=== PATIENT | female | born 1950 | race Caucasian/White ===

== ENCOUNTER 2024-11-13 15:04 | Inpatient (IN) | payer MEDICARE, SELFPAY ==
[2024-11-13] VITALS (12 sets, daily range): BP systolic 92–139; BP diastolic 52–94; PULSE 83–119; RESP 14–40; TEMP 36.6–36.9; O2SAT 88–99; BMI 26.6; BMI 25.4
--- NOTE | 2024-11-13 15:13 | ECG_ITS ---
APPROVED REPORT Exam: Resting ECG HR:120 bpm ECG Measurements Heart Rate 120 AXES ND 147 P 86 QRSd 78 QRS 82 QT 335 T 21 QTc 406 Conclusion Sinus tachycardia Intermittent PVCs ST depressions in V3 through V6 as well as 2, 3, aVF. No reciprocal elevations Electronically signed by : AUGUSTIN HILLS, 11/13/2024 19:11:29
--- NOTE | 2024-11-13 15:18 | XR_ITS ---
PROCEDURE INFORMATION: Exam: XR Chest Exam date and time: 11/13/2024 3:22 PM Age: 74 years old Clinical indication: Shortness of breath; Additional info: SOA, copd exacerbation, smoker TECHNIQUE: Imaging protocol: Radiologic exam of the chest. Views: 1 view. COMPARISON: No relevant prior studies available. FINDINGS: Lungs: Hyperexpanded lung [place] consistent with COPD . No focal consolidation Pleural spaces: Unremarkable. No pleural effusion. No pneumothorax. Heart/Mediastinum: Unremarkable. No cardiomegaly. Bones/joints: Unremarkable. IMPRESSION: . No focal consolidation
[2024-11-13] MEDS: IPRATROPIUM/ALBUTEROL 3 ML NEB 9 ML IH ×2 (15:21→17:33)
[2024-11-13 15:27] LABS: VBG Base Excess -2.4 mmol/L (-2.4-2.3); VBG HCO3 23.5 mmol/L (23-30); VBG Oxygen Saturation 77.8 % (50-70); VBG PCO2 44.9 mmol/L (35-51); VBG PH 7.34 mmol/L (7.31-7.41); VBG Total CO2 24.8 mmol/L (23-27)
[2024-11-13] MEDS: METHYLPREDNISOLONE SOD SUCC 125MG VIAL 125 MG IV (15:27)
[2024-11-13] MEDS: MAGNESIUM SULFATE IN WATER 2 GM/50 ML PIGGYBACK IV (15:27)
[2024-11-13 15:28] LABS: Lactate Venous 2.2 mmol/L (0.4-2.0)
[2024-11-13 15:34] LABS: Activated Partial Thrombo Time 26.1 seconds (22.8-30.6); Albumin Level 4.5 g/dl (3.5-5.0); Chloride 100 mmol/L (98-107); INR 0.96 (0.9-1.1); Potassium 3.8 mmoL/L (3.5-5.1); Prothrombin Time 10.8 seconds (10.1-12.5); Sodium 132 mmol/L (136-145)
[2024-11-13 15:37] LABS: Alanine Aminotransferase 48 U/L (12-78); Albumin/Globulin Ratio 1.4 (1.1-1.8); Alkaline Phosphatase 157 U/L (38-126); Anion Gap 11.8 mEq/L (5-15); Aspartate Amino Transferase 53 U/L (14-36); Bilirubin,Total 0.9 mg/dl (0.2-1.3); Blood Urea Nitrogen 17 mg/dl (7-17); Calcium 9.6 mg/dl (8.4-10.2); Carbon Dioxide 24 mmol/L (22.0-30.0); Creatinine Clearance Estimated 61 mL/min (50-200); Estimated Glomerular Filt Rate 70 ml/min (>60); GFR (African American) 85 ML/MIN (>60); Globulin 3.3 g/dL (1.3-3.2); Glucose 129 mg/dl (74-100); Total Protein,Serum 7.8 g/dl (6.3-8.2)
--- NOTE | 2024-11-13 15:40 | ED_ITS ---
Discharge Plan Disposition Chief Complaint: Shortness of Breath/Dyspnea Clinical Impressions Clinical Impression: Acute exacerbation of chronic obstructive airways disease, Acute hypoxemic respiratory failure Print Language Print Language: Setswana Discharge ED Provider: Darrius Farley HPI General Chief Complaint: Shortness of Breath/Dyspnea Stated Complaint: SOA Time Seen by Provider: 11/13/24 15:06 Mode of Arrival: Wheelchair Source of Information: Patient Limitations: No Limitations Description of Symptoms (Recalled from ER Triage Doc. by RN): PT IS SHORT OF BREATH. COPD,SMOKER,X1 WEEK History of Present Illness HPI narrative: Please note that above description of symptoms, in this electronic medical record under categorization of recalled from ER triage doctor by RN are reflective of an initial nursing assessment, however, is not reflective of my full history and physical exam that was personally taken and clarified. Consequentially, this preceding description of symptoms, which may include the patient's categorized chief complaint in the EMR, do not reflect my personal clinical impression, and the ultimate description of history of present illness and patient stated complaints should be deferred to this section of the note. Unless stated otherwise or congruent with this section of the note, additional signs, symptoms, or incongruence should be interpreted as inaccurate with my clinical impression. Related Data Allergies Allergy/AdvReac Type Severity Reaction Status Date / Time No Known Allergies Allergy Verified 11/13/24 15:19 [facility] Disclaimer: The information contained in this section may have been updated after the patient was seen, as this information can be updated by other users. Social History Smoking Status: Current every day smoker alcohol intake: never current occupational status: retired Travel in the last 8 weeks: None ROS Obtained: Yes All systems reviewed & no additional complaints except as documented Physical Exam General General appearance: alert and in distress (Moderate respiratory distress) Neck Neck exam: Present trachea midline Chest Chest inspection: Present normal inspection and symmetric chest wall rise Respiratory Respiratory exam: Present respiratory distress, wheezes, accessory muscle use and prolonged expiratory phase; Absent stridor Cardiovascular Cardiovascular exam: Present regular rate, normal rhythm and other (Pulses equal and symmetric in upper and lower extremities) Extremities Exam Extremities exam: Absent edema Neurological Exam Neurological exam: Present alert, oriented X3 and CN II-XII intact Skin Skin exam: Present warm and dry; Absent cyanosis, diaphoresis or pallor HEART Score HEART Score HEART Score assessment performed?: Yes History (anamnesis): Slightly suspicious ECG: Non-specific disturbance Age: >65 years Risk factors: 3 or more risk factors Troponin: </= normal limit HEART Score: 5 Critical Care Critical Care Time Critical Care Time: Yes (respiratory) Attestation: On 11/13/24, the high probability of a clinically significant, sudden or life threatening deterioration of the following system(s) required my full and direct attention, intervention and personal management. The time I documented below is in addition to time spent performing reported procedures but includes the following listed in this critical care notation. Total Time Total Critical Care Time: 45 Medical Decision Making Medical Records Medical records reviewed: Yes I reviewed the patient's medical records. Filipe Inquiry Pt receiving controlled substance: No Filipe was queried for this patient: No Vital Signs Vital Signs: 11/13/24 15:05 11/13/24 15:56 11/13/24 16:01 Temperature 98.4 F Temperature Source Oral Pulse Rate 110 H 111 H Pulse Rate [Right] 113 H Respiratory Rate 40 H 25 H 29 H Blood Pressure 92/66 L 125/62 Blood Pressure [Right Arm] 139/82 Blood Pressure Mean [Right Arm] 101 02 Sat by Pulse Oximetry 88 L 93 L 98 Oxygen Delivery Method Room Air Room Air Room Air 11/13/24 16:30 11/13/24 17:00 11/13/24 17:30 Temperature Temperature Source Pulse Rate 89 100 H 92 H Pulse Rate [Right] Respiratory Rate 27 H 33 H 14 Blood Pressure 132/57 L 107/61 L 113/64 Blood Pressure [Right Arm] Blood Pressure Mean [Right Arm] 02 Sat by Pulse Oximetry 98 98 92 L Oxygen Delivery Method Nasal Cannula Nasal Cannula Nasal Cannula 11/13/24 18:30 Temperature Temperature Source Pulse Rate 119 H Pulse Rate [Right] Respiratory Rate 22 Blood Pressure 108/56 L Blood Pressure [Right Arm] Blood Pressure Mean [Right Arm] 02 Sat by Pulse Oximetry 99 Oxygen Delivery Method Nasal Cannula Lab Data Labs: Lab Results 11/13/24 15:15: WBC 9.4, RBC 5.06, Hgb 15.3, Hct 45.4, MCV 89.7, MCH 30.2, MCHC 33.7, RDW 12.7, Plt Count 262, MPV 9.6, Neut % (Auto) 73.3, Lymph % (Auto) 14.8, [place] % (Auto) 10.9 H, Eos % (Auto) 0.1, Baso % (Auto) 0.7, Neut # (Auto) 6.9, Lymph # (Auto) 1.4, [place] # (Auto) 1.0, Eos # (Auto) 0.0, Baso # (Auto) 0.1, PT 10.8, INR 0.96, APTT 26.1, Sodium 132 L, Potassium 3.8, Chloride 100, Carbon Dioxide 24, Anion Gap 11.8, BUN 17, Creatinine 0.80, Estimated Creat Clear 61, Estimated GFR 70, Est GFR ( Amer) 85, Glucose 129 H, Calcium 9.6, Magnesium 2.0, Total Bilirubin 0.9, AST 53 H, ALT 48, Alkaline Phosphatase 157 H , Troponin I < 0.01, NT-Pro-B Natriuret Pep 125, Total Protein 7.8, Albumin 4.5, Globulin 3.3 H, Albumin/Globulin Ratio 1.4 11/13/24 15:21: VBG pH 7.34, VBG pCO2 44.9, VBG pO2 44.0 H, VBG HCO3 23.5, VBG Total CO2 24.8, VBG O2 Saturation 77.8 H, VBG Base Excess -2.4, VBG Lactic Acid 2.2 H 11/13/24 15:31: Lactate 1.4 11/13/24 15:15 11/13/24 15:15 Response Orders (Tests/Meds): ED MEDICATIONS Generic Name Dose Route Start Last Admin Trade Name Freq PRN Reason Stop Dose Admin Albuterol/Ipratropium 3 ml 11/13/24 23:00 Ipratropium/Albuterol 3 Ml Neb IH 12/13/24 22:59 Q6 WILIAM Doxycycline Hyclate 100 mg 11/13/24 19:45 Doxycycline Hycl 100 Mg Tablet PO 11/23/24 19:44 Q12H WILIAM Enoxaparin Sodium 40 mg 11/13/24 19:45 Enoxaparin 40mg/0.4ml Syringe SUBCUT 12/13/24 19:44 ONCE WILIAM Ceftriaxone Sodium 1 gm/ 50 mls @ 100 mls/hr 11/14/24 09:00 Sodium Chloride IV 11/24/24 08:59 Q24H [facility] Methylprednisolone Sodium Succinate 40 mg 11/13/24 19:34 Methylprednisolone Sod Succ 40mg Vial IV 11/13/24 19:35 ONCE ONE Methylprednisolone Sodium Succinate 40 mg 11/14/24 09:00 Methylprednisolone Sod Succ 40mg Vial IV 12/14/24 08:59 DAILY WILIAM Discontinued Medications Generic Name Dose Route Start Last Admin Trade Name Davidson PRN Reason Stop Dose Admin Albuterol/Ipratropium 9 ml 11/13/24 15:17 11/13/24 15:21 Ipratropium/Albuterol 3 Ml Neb IH 11/13/24 15:18 9 ml ONCE ONE Administration Albuterol/Ipratropium 9 ml 11/13/24 17:25 11/13/24 17:33 Ipratropium/Albuterol 3 Ml Neb IH 11/13/24 17:26 9 ml ONCE ONE Administration Magnesium Sulfate 2 gm in 50 mls @ 50 mls/hr 11/13/24 15:17 11/13/24 15:27 Magnesium Sulfate 2gm/50ml Premix IV 11/13/24 16:16 50 mls/hr ONCE ONE Administration Ceftriaxone Sodium 2 gm/ 100 mls @ 200 mls/hr 11/13/24 17:25 11/13/24 17:33 Sodium Chloride IV 11/13/24 17:54 200 mls/hr ONCE ONE Administration Iopamidol 70 ml 11/13/24 17:58 11/13/24 17:59 Iopamidol-370 (76%);100ml Bottle IV 11/13/24 17:59 70 ml ONCE ONE Administration Methylprednisolone Sodium Succinate 125 mg 11/13/24 15:17 11/13/24 15:27 Methylprednisolone Sod Succ 125mg Vial IV 11/13/24 15:18 125 mg ONCE ONE Administration Sodium Chloride 50 ml 11/13/24 17:58 11/13/24 17:59 0.9 % Sodium Chloride 50 Ml Vial IV 11/13/24 17:59 50 ml ONCE ONE Administration Sodium Chloride 10 ml 11/13/24 17:58 11/13/24 17:59 Sodium Chloride 0.9% 10ml Syr (Rad Only) IV 11/13/24 17:59 10 ml ONCE ONE Administration ORDERS Category Date Time Status CT angio chest PE protocol Stat Cat Scan 11/13/24 17:43 Taken XR chest portable Stat Exams 11/13/24 15:18 Completed CBC w/Auto Diff [Complete Blood Count Auto Diff] AMLAB Lab 11/14/24 06:00 Ordered CBC w/Auto Diff [Complete Blood Count Auto Diff] Stat Lab 11/13/24 19:35 Ordered CMP [Comprehensive Metabolic Panel] AMLAB Lab 11/14/24 06:00 Ordered Complete Blood Count Auto Diff Stat Lab 11/13/24 15:15 Completed Comprehensive Metabolic Panel Stat Lab 11/13/24 15:15 Completed Full Resp Panel w/COVID ([facility]) Routine Lab 11/13/24 19:32 Ordered Lactic Acid Follow Up (RFLX 1) Stat Lab 11/13/24 19:28 Ordered Lactic Acid Stat Lab 11/13/24 15:31 Completed Magnesium Stat Lab 11/13/24 15:15 Completed NT Pro Brain Natriuretic Pep. Stat Lab 11/13/24 15:15 Completed PT INR [Prothrombin Time INR] Stat Lab 11/13/24 15:15 Completed PTT [Activated Partial Thrombo Time] Stat Lab 11/13/24 15:15 Completed Troponin I Q3H Lab 11/13/24 18:30 Ordered Troponin I Q3H Lab 11/13/24 21:30 Ordered Troponin I Stat Lab 11/13/24 15:15 Completed Blood Culture Stat Micro 11/13/24 15:28 Received Venous Blood Gas Stat RT 11/13/24 15:21 Completed MDM Narrative Medical Decision Narrative: 74-year-old female history of COPD not on home oxygen, but still smoking, hypertension presenting with shortness of breath. Patient states that she has a sick family member. Has been sick for about a week, getting worse. Cough productive of thick clear sputum. No fevers or chills, night sweats, chest pain, nausea, vomiting, neurologic deficits. States that at baseline she sleeps propped up, unable to lie flat at baseline, this has not gotten any worse. No lower extremity edema. No history of heart disease or heart failure. History was obtained via conversation with patient. On arrival, patient hemodynamically stable, alert, oriented x4, appropriate, GCS 15, moving all extremities spontaneously, pupils equal and reactive to light. Full physical exam performed and significant for moderate respiratory distress, retractions, prolonged expiratory phase and speaking partial sentences. Tachypneic to around 30 breaths/min. Cardiac exam with no murmurs gallops or rubs. Pulses equal and symmetric, no lower extremity edema. Neurologically intact. Differential includes COPD exacerbation, bronchitis, pneumonia, ACS, ME, CHF, pneumothorax, less likely to be PE, or dissection, among others. Patient was given DuoNebs, Solu-Medrol, magnesium for symptomatic management and correction of underlying abnormalities. Patient placed on continuous cardiac monitoring and continuous pulse ox with initial blood pressure 139/82, heart rate 113, O2 sat 86% on room air, 96% on 3 L nasal cannula. Independent interpretation of EKG shows sinus tachycardia intermittent PVCs. ST depressions with T wave inversions in 2, 3, aVF. ST depressions in V3 through V6. No reciprocal elevations. Workup independently interpreted and significant for nonactionable CBC or chemistry. VBG with normal pH, CO2 45, O2 44, lactate 2.2, likely from increased work of breathing. Patient sodium 132, Legionella was ordered. BNP and troponin negative. Chest x-ray with bronchial inflammation, no acute consolidation. See radiology read for full review of final results. Heart score 5. On reevaluation, patient states that she is feeling much better. I trialed her off of oxygen for a few minutes, But during that time, patient's respiratory rate increased from 25-45 and oxygen saturations dropped into the mid 80s. Patient was given more DuoNebs because on repeat evaluation, her lungs are still diffusely wheezy and she still working hard to breathe. I feel patient is appropriate for inpatient management and acute respiratory failure secondary to likely viral COPD exacerbation. Because patient high risk for clinical decompensation, deemed appropriate for inpatient admission. Results were relayed to patient who voiced understanding and patient was agreeable to inpatient admission and management. Patient was admitted to the hospital for further definitive management. Jewelry Sales Representative disclaimer Much of this encounter note is an electronic industrial gas production operator spoken language to printed text. Electronic industrial gas production operator of the spoken language may permit errors. Although I have reviewed the note, some errors may still exist.
[2024-11-13 15:45] LABS: Hematocrit 45.4 % (37.0-47.0); Hemoglobin 15.3 g/dL (12.2-16.2); Red Blood Count 5.06 M/mm3 (4.20-5.40); White Blood Count 9.4 K/mm3 (4.8-10.8)
[2024-11-13 15:46] LABS: Lymphocytes % 14.8 % (10-50); Mean Corpuscular HGB Conc 33.7 g/dL (31.8-35.4); Mean Corpuscular Hemoglobin 30.2 pg (27.0-31.2); Mean Corpuscular Volume 89.7 fl (81-99); Mean Platelet Volume 9.6 fl (7.4-10.4); Monocytes % 10.9 % (1.7-9.3); Neutrophils % 73.3 % (37.0-80.0); Platelet Count 262 K/mm3 (142-424); Red Cell Distribution Width 12.7 % (11.5-17.5)
[2024-11-13 15:47] LABS: Basophils # 0.1 K/mm3 (0-0.2); Basophils % 0.7 % (0.1-2.0); Eosinophils % 0.1 % (0.1-12.0); Lymphocytes # 1.4 K/mm3 (0.7-4.5); NT Pro Brain Natriuretic Pep. 125 pg/mL (0-125); Neutrophils # 6.9 K/mm3 (1.8-7.8)
[2024-11-13 15:51] LABS: Troponin I < 0.01 ng/ml (0.00-0.034)
[2024-11-13 15:57] LABS: Lactic Acid 1.4 mmol/L (0.7-2.1)
[2024-11-13] MEDS: CEFTRIAXONE SODIUM 2 GM in 0.9 % SODIUM CHLORIDE 100 ML IV (17:33)
--- NOTE | 2024-11-13 17:37 | PC.NURSE ---
Rounds just completed.
--- NOTE | 2024-11-13 17:43 | CT_ITS ---
PROCEDURE INFORMATION: Exam: CTA Chest With Contrast Exam date and time: 11/13/2024 5:58 PM Age: 74 years old Clinical indication: Other: Persistent tachypnea and hypoxemia TECHNIQUE: Imaging protocol: Computed tomographic angiography of the chest with contrast. Exam focused on the arteries. 3D rendering (Not supervised by radiologist): MIP and/or 3D reconstructed images were created by the technologist. Radiation optimization: All CT scans at this facility use at least one of these dose optimization techniques: automated exposure control; mA and/or kV adjustment per patient size (includes targeted exams where dose is matched to clinical indication); or iterative reconstruction. Contrast material: ISO 370; Contrast volume: 70 ml; Contrast route: INTRAVENOUS (IV); COMPARISON: CR XR CHEST PORTABLE 11/13/2024 3:22 PM FINDINGS: Pulmonary arteries: Normal. No pulmonary emboli. Aorta: Moderate scattered atherosclerotic calcification of the aorta. No evidence of aneurysm or dissection. Thyroid: 1.5 cm hypodense cyst versus nodule in the right lobe of the thyroid. Thyroid appears diffusely heterogeneous but overall normal in size. Lungs: Minimal scattered patchy parenchymal opacity in the lingula and left lower lobe favored to represent mild scarring or atelectasis. Mild changes of emphysema in the lung apices. No prominent areas of consolidation. Pleural spaces: Unremarkable. No pneumothorax. No pleural effusion. Heart: Unremarkable. No cardiomegaly. No pericardial effusion. Lymph nodes: Unremarkable. No enlarged lymph nodes. Bones/joints: Moderate degenerative changes throughout the thoracic spine. No vertebral body compression. No acute fracture. Soft tissues: Unremarkable. IMPRESSION: 1. No evidence of pulmonary embolus 2. Right lobe thyroid cyst versus nodule measuring 1.5 cm. Correlation with thyroid ultrasound recommended 2. Minimal scattered parenchymal opacity in the lingula and left lower lobe favored to be chronic, although minimal active pneumonitis or bronchiolitis not excluded. COMMENTS: 1. Consistent with the [employer]'s Incidental Findings Committee white paper (J Am Karolina Radiol 2015): In patients aged 35 years and older with an incidental thyroid nodule equal to or greater than 1.[address], MRI or extrathyroidal US, further evaluation with dedicated thyroid US is recommended for patients with normal life expectancy and without comorbidities. For smaller nodules without suspicious features, no further evaluation or follow up is recommended. 2. The presence of pulmonary emphysema on CT is an independent risk factor for lung cancer. In the absence of a history or active diagnosis of lung cancer, it is recommended that this patient with emphysema be evaluated for enrollment in a low dose CT lung cancer screening program.
[2024-11-13] MEDS: IOPAMIDOL-370 (76%);100ML BOTTLE 70 ML IV (17:59)
[2024-11-13] MEDS: 0.9 % SODIUM CHLORIDE 50 ML VIAL IV (17:59)
[2024-11-13] MEDS: SODIUM CHLORIDE 0.9% 10ML SYR (RAD ONLY) 10 ML IV (17:59)
[2024-11-13 19:28] LABS: Reflex Lactic Add Lactic Reflex
--- NOTE | 2024-11-13 19:38 | P.HP_ITS ---
<Statement entered by Micheal Higgins MD - 11/20/24 13:11> Rounded on patient after nurse practitioner. ?Personally examined and interviewed patient. Agree with exam findings and care plan as documented. History of Present Illness *Admission Date: 11/13/24 *Reason for visit:: Shortness of air, cough *History of present illness: Ms. Martinez is a 74-year-old female with a past medical history of COPD, only on Albuterol prn, chronic tobacco use, does not wear home oxygen. She presents to [facility] due to a 1-week history of cough, shortness of air, generalized fatigue and fevers. She reports similar sick contacts in the home. She reports that she has been taking Mucinex, Psueduofed, Robitussin with no improvement of her symptoms. In the ER, the patient underwent a Cxray that showed no acute findings, CBC was unremarkable. CMP showed a sodium of 132 and was otherwise unremarkalbe. Upon arrival in the ER she was noted to be 88 percent on room air and improved to mid to upper 90's with 2 L and duonebs. CTA of the chest is currently pending. The patient is admitted with initial impression: Acute Exacerbation of COPD [facility] Disclaimer: The information contained in this section may have been updated after the patient was seen, as this information can be updated by other users. Medical History Tobacco use COPD (chronic obstructive pulmonary disease) Social History Smoking Status: Current every day smoker alcohol intake: never current occupational status: retired Travel in the last 8 weeks: None Have you lived/traveled outside [place] in past 30 days?: No Contact w/someone who lives/traveled outside US past 30 days?: No Exposure to someone with infectious disease in past 14 days?: No Do you have a fever (greater than 100.4 F or 38 C)?: No Have you tested positive for COVID-19: No Exposed to someone with COVID-19 in past 14 days?: No Do you have a sore throat?: No Do you have a cough?: No Do you have any weakness?: No Do you have any diarrhea?: No Are you experiencing any unusual bleeding?: No Do you have any muscle aches/pain?: No Do you have any abdominal pain?: No Are you experiencing loss of taste or smell?: No Other Medical History Have you received the Flu Vaccine for this season: No Have you received the Pneumonia Vaccine: No Review of Systems Review of Systems Review of systems:: pertinent systems reviewed and negative unless documented below Constitutional Constitutional: Reports body ache(s), Reports fever(s) and Reports lethargy Eyes Eyes: Reports system reviewed and no additional complaints, except as documented ENT Ears, Nose, Mouth, and Throat: Reports system reviewed and no additional complaints, except as documented *Cardiovascular Cardiovascular: Reports system reviewed and no additional complaints, except as documented and Reports dyspnea *Respiratory Respiratory: Reports cough and Reports dyspnea *Gastrointestinal Gastrointestinal: Reports system reviewed and no additional complaints, except as documented *Genitourinary Genitourinary: Reports system reviewed and no additional complaints, except as documented *Musculoskeletal Musculoskeletal: Reports system reviewed and no additional complaints, except as documented Integumentary/Breasts Skin/Breast: Reports system reviewed and no additional complaints, except as documented *Neurologic Neurologic: Reports system reviewed and no additional complaints, except as documented Psychiatric Psychiatric: Reports system reviewed and no additional complaints, except as documented Endocrine Endocrine: Reports system reviewed and no additional complaints, except as documented Hematologic/Lymphatic Hematologic/Lymphatic: Reports system reviewed and no additional complaints, except as documented Allergic/Immunologic Allergic/Immunologic: Reports system reviewed and no additional complaints, except as documented Meds Home Medications and Allergies New Prescriptions to Start Prescriptions: Allergies Allergy/AdvReac Type Severity Reaction Status Date / Time No Known Allergies Allergy Verified 11/13/24 15:19 Exam Data for Last 24 hours Vital signs and Labs for Last 24 Hours: Temp Pulse Resp BP Pulse Ox O2 Del Method 98.4 F 119 H 22 108/56 L 99 Nasal Cannula 11/13/24 15:05 11/13/24 18:30 11/13/24 18:30 11/13/24 18:30 11/13/24 18:30 11/13/24 18:30 Laboratory Results - last 24 hr 11/13/24 15:15: WBC 9.4, RBC 5.06, Hgb 15.3, Hct 45.4, MCV 89.7, MCH 30.2, MCHC 33.7, RDW 12.7, Plt Count 262, MPV 9.6, Neut % (Auto) 73.3, Lymph % (Auto) 14.8, [place] % (Auto) 10.9 H, Eos % (Auto) 0.1, Baso % (Auto) 0.7, Neut # (Auto) 6.9, Lymph # (Auto) 1.4, [place] # (Auto) 1.0, Eos # (Auto) 0.0, Baso # (Auto) 0.1, PT 10.8, INR 0.96, APTT 26.1, Sodium 132 L, Potassium 3.8, Chloride 100, Carbon Dioxide 24, Anion Gap 11.8, BUN 17, Creatinine 0.80, Estimated Creat Clear 61, Estimated GFR 70, Est GFR ( Amer) 85, Glucose 129 H, Calcium 9.6, Magnesium 2.0, Total Bilirubin 0.9, AST 53 H, ALT 48, Alkaline Phosphatase 157 H , Troponin I < 0.01, NT-Pro-B Natriuret Pep 125, Total Protein 7.8, Albumin 4.5, Globulin 3.3 H, Albumin/Globulin Ratio 1.4 11/13/24 15:21: VBG pH 7.34, VBG pCO2 44.9, VBG pO2 44.0 H, VBG HCO3 23.5, VBG Total CO2 24.8, VBG O2 Saturation 77.8 H, VBG Base Excess -2.4, VBG Lactic Acid 2.2 H 11/13/24 15:31: Lactate 1.4 I & O for Last 24 hours: Intake & Output 11/10/24 11/11/24 11/12/24 11/13/24 23:59 23:59 23:59 23:59 Weight 77.111 kg Constitutional Constitutional: mild distress *Routine HEENT Exam Head: Present normocephalic Eye: Present EOMI ENT: Present mucous membranes moist *Routine Neck Exam Neck: Present supple and full ROM *Routine Respiratory Exam Respiratory: Present wheezes and diminished air movement *Routine Cardiovascular Exam Cardiovascular: Present RRR, Normal S1 and Normal S2 *Routine Abdominal Exam Abdominal: Present soft *Routine Rectal Exam Rectal:: deferred *Routine Genitalia Exam Genitalia:: deferred *Routine Skin Exam Skin: Present intact *Routine Neurological Exam Neurological: Present alert, oriented X3 and CN II-XII intact Assessment and Plan *Assessment and plan (1) COPD exacerbation: Status: Acute Category: Medical Code(s): J44.1 - Chronic obstructive pulmonary disease with (acute) exacerbation (2) Hypoxic respiratory failure: Status: Acute Qualifiers: Chronicity: acute Qualified Code(s): J96.01 - Acute respiratory failure with hypoxia Category: Medical Code(s): J96.91 - Respiratory failure, unspecified with hypoxia (3) Tobacco abuse: Status: Acute Category: Medical Code(s): Z72.0 - Tobacco use Plan 74-year-old female with past medical history of COPD, chronic tobacco use, does not use home oxygen and is on no chronic home medications who presented with a 1-week history of cough, fevers, generalized weakness and shortness of air - COPD exacerbation Reports has previously been diagnosed with COPD Continues to smoke, only uses rescue inhalers as needed Presents with a 1-week progressive history of cough, reports initially had fevers, now resolved, continued worsening shortness of air Cxray with no acute consolidations CTA of the chest is currently pending Continue Rocephin, Doxycycline Sputum ordered Continue Solu-medrol Titrate oxygen to maintain oxygen saturation 90% or greater Follow up on Respiratory Panel- Positive for RSV - Hypoxic Respiratory Failure Quickly recovered on 2 liters Titrate to maintain oxygen saturation 92% or above Follow-up on CTA of the chest and treat accordingly - Chronic Tobacco Use Counseled on the need for cessation Denies needing NRT
--- NOTE | 2024-11-13 19:38 | PC.NURSE ---
notified warehouse operations associate of pt being admitted and needing bed
[2024-11-13 19:42] LABS: Adenovirus,PCR Not Detected (NotDetected); Bordetella Pertussis Not Detected (NotDetected); Chlamydophila Pneumoniae, PCR Not Detected (NotDetected); Coronavirus 19, PCR Not Detected (NotDetected); Coronavirus 229E Not Detected (NotDetected); Coronavirus NL63 Not Detected (NotDetected); Coronavirus OC43 Not Detected (NotDetected); Coronovirus HKU1,PCR Not Detected (NotDetected); Human Metapneumovirus Not Detected (NotDetected); Influenza A, PCR Not Detected (NotDetected); Influenza AH1, 2009 Not Detected (NotDetected); Influenza AH1, PCR Not Detected (NotDetected); Influenza AH3,PCR Not Detected (NotDetected); Influenza B, PCR Not Detected (NotDetected); Mycoplasma Pneumoniae, PCR Not Detected (NotDetected); Parainfluenza 1, PCR Not Detected (NotDetected); Parainfluenza 2, PCR Not Detected (NotDetected); Parainfluenza 3, PCR Not Detected (NotDetected); Parainfluenza 4, PCR Not Detected (NotDetected); Rhinovirus/Enterovirus Not Detected (NotDetected)
[2024-11-13] MEDS: DOXYCYCLINE HYCL 100 MG TABLET PO (19:43)
[2024-11-13 20:04] LABS: Lactic Acid Follow Up (RFLX 1) 5.8 mmol/L (0.7-2.1)
[2024-11-13 20:05] LABS: Troponin I < 0.01 ng/ml (0.00-0.034)
--- NOTE | 2024-11-13 20:16 | PC.NURSE ---
pt arrived to floor via wheelchair @20:11
[2024-11-13 20:58] LABS: Respiratory Syncytial Virus Detected (NotDetected)
[2024-11-13] MEDS: guaiFENesin 200MG/10ML SYRUP UDC 100 MG PO (21:22)
[2024-11-13 21:47] LABS: Reflex Lactic (2 hrs) Add Lactic Reflex
[2024-11-13 22:12] LABS: Troponin I < 0.01 ng/ml (0.00-0.034)
[2024-11-13 22:49] LABS: Lactic Acid Follow up (RFLX 2) 3.1 mmol/L (0.7-2.1)
[2024-11-13] MEDS: IPRATROPIUM/ALBUTEROL 3 ML NEB IH (23:03)
[2024-11-14] VITALS (15 sets, daily range): BP systolic 109–134; BP diastolic 47–73; PULSE 80–116; RESP 19–22; TEMP 36.6–37.4; O2SAT 15–98; BMI 26.2
[2024-11-14] MEDS: IPRATROPIUM/ALBUTEROL 3 ML NEB IH ×5 (05:54→21:40)
[2024-11-14 07:21] LABS: Albumin Level 3.9 g/dl (3.5-5.0); Chloride 100 mmol/L (98-107); Sodium 131 mmol/L (136-145)
[2024-11-14 07:22] LABS: Potassium 3.7 mmoL/L (3.5-5.1)
[2024-11-14 07:24] LABS: Alanine Aminotransferase 35 U/L (12-78); Anion Gap 4.7 mEq/L (5-15); Aspartate Amino Transferase 38 U/L (14-36); Blood Urea Nitrogen 13 mg/dl (7-17); Carbon Dioxide 30 mmol/L (22.0-30.0); Creatinine Clearance Estimated 60 mL/min (50-200); Estimated Glomerular Filt Rate 70 ml/min (>60); GFR (African American) 85 ML/MIN (>60)
[2024-11-14 07:25] LABS: Albumin/Globulin Ratio 1.3 (1.1-1.8); Alkaline Phosphatase 137 U/L (38-126); Bilirubin,Total 0.4 mg/dl (0.2-1.3); Calcium 9.7 mg/dl (8.4-10.2); Globulin 2.9 g/dL (1.3-3.2); Glucose 129 mg/dl (74-100); Total Protein,Serum 6.8 g/dl (6.3-8.2)
--- NOTE | 2024-11-14 07:55 | [facility].PHAINT1 ---
Pharmacy Intervention Comments: VERIFIED WITH PATIENT NON KNOWN HOME MEDICATIONS.
[2024-11-14 08:33] LABS: Red Blood Count 4.46 M/mm3 (4.20-5.40); White Blood Count 9.7 K/mm3 (4.8-10.8)
[2024-11-14 08:34] LABS: Basophils % 0.2 % (0.1-2.0); Hematocrit 39.8 % (37.0-47.0); Lymphocytes # 1.1 K/mm3 (0.7-4.5); Lymphocytes % 11.1 % (10-50); Mean Corpuscular HGB Conc 33.9 g/dL (31.8-35.4); Mean Corpuscular Hemoglobin 30.3 pg (27.0-31.2); Mean Corpuscular Volume 89.2 fl (81-99); Mean Platelet Volume 9.7 fl (7.4-10.4); Monocytes # 0.9 K/mm3 (0.1-1.0); Monocytes % 9.3 % (1.7-9.3); Neutrophils # 7.7 K/mm3 (1.8-7.8); Neutrophils % 79.1 % (37.0-80.0); Platelet Count 247 K/mm3 (142-424); Red Cell Distribution Width 12.6 % (11.5-17.5)
[2024-11-14] MEDS: METHYLPREDNISOLONE SOD SUCC 40MG VIAL 40 MG IV (09:40)
[2024-11-14] MEDS: DOXYCYCLINE HYCL 100 MG TABLET PO ×2 (09:40→20:10)
[2024-11-14 10:47] LABS: Hemoglobin 13.5 g/dL (12.2-16.2)
[2024-11-14] MEDS: CEFTRIAXONE SODIUM 1 GM in 0.9 % SODIUM CHLORIDE 50 ML IV (11:49)
--- NOTE | 2024-11-14 18:21 | PC.NURSE ---
AOX4, HAS TOLERATED NC T/O SHIFT AFTER BEING WEANED OFF VENTI MASK. SAT UP TO CHAIR FOR A FEW HOURS THIS SHIFT AND TOLERATED WELL.
[2024-11-14] MEDS: BUDESONIDE 0.5MG/2ML NEB 0.5 MG IH (18:53)
--- NOTE | 2024-11-14 20:56 | EXP.PN ---
Subjective *Date: 11/14/24 *Time: 20:56 Interval history: Patient states she is somewhat better than yesterday, continues to require new oxygen on 12 L Ventimask. No respiratory distress. However, does have moderate wheezing on bilateral lung [place]. Exam Data for Last 24 hours Vital signs and Labs for Last 24 Hours: Temp Pulse Resp BP Pulse Ox O2 Del Method O2 Flow Rate 98.2 F 116 H 20 127/59 L 91 L Nasal Cannula 3 11/14/24 19:19 11/14/24 19:19 11/14/24 19:19 11/14/24 19:19 11/14/24 19:19 11/14/24 19:19 11/14/24 19:19 FiO2 90 11/14/24 08:00 Laboratory Results - last 24 hr 11/13/24 19:38: Chlamy pneumoniae PCR Not detected, Adenovirus (PCR) Not detected, B. pertussis DNA (PCR) Not detected, Coronavirus OC43 (PCR) Not detected, Coronavirus HKU1 (PCR) Not detected, Coronavirus 229E (PCR) Not detected, SARS-CoV-2 (PCR) Not detected, Coronavirus NL63 (PCR) Not detected, Human Metapneumovir PCR Not detected, Influenza A (H1) PCR Not detected, Influ A (H1N1/09) PCR Not detected, Influenza A (H3) PCR Not detected, Influenza Type A (PCR) Not detected, Influenza Type B (PCR) Not detected, M. pneumoniae (PCR) Not detected, Parainfluenza 1 (PCR) Not detected, Parainfluenza 2 (PCR) Not detected, Parainfluenza 3 (PCR) Not detected, Parainfluenza 4 (PCR) Not detected, RSV (PCR) Detected A, Entero/Rhino (PCR) Not detected 11/13/24 21:40: Troponin I < 0.01 11/13/24 22:30: Lactate 3.1 H 11/14/24 06:28: WBC 9.7, RBC 4.46, Hgb 13.5 D, Hct 39.8, MCV 89.2, MCH 30.3, MCHC 33.9, RDW 12.6, Plt Count 247, MPV 9.7, Neut % (Auto) 79.1, Lymph % (Auto) 11.1, [place] % (Auto) 9.3, Eos % (Auto) 0.0 L, Baso % (Auto) 0.2, Neut # (Auto) 7.7, Lymph # (Auto) 1.1, [place] # (Auto) 0.9, Eos # (Auto) 0.0, Baso # (Auto) 0.0, Sodium 131 L, Potassium 3.7, Chloride 100, Carbon Dioxide 30, Anion Gap 4.7 L, BUN 13, Creatinine 0.80, Estimated Creat Clear 60, Estimated GFR 70, Est GFR ( Amer) 85, Glucose 129 H, Calcium 9.7, Total Bilirubin 0.4, AST 38 H D, ALT 35 D, Alkaline Phosphatase 137 H, Total Protein 6.8, Albumin 3.9 D, Globulin 2.9, Albumin/Globulin Ratio 1.3 I & O for Last 24 hours: Intake & Output 11/11/24 11/12/24 11/13/24 11/14/24 23:59 23:59 23:59 23:59 Intake Total 1320 / 1320 Output Total 0 / 0 0 / 0 Balance 0 / 180 1320 / 1320 Weight 73.527 kg 75.841 kg Microbiology Reports for the Last 24 Hours: Microbiology 11/13/24 15:28 Blood Blood Culture - Preliminary NO GROWTH AFTER 24 HOURS 11/13/24 15:28 Blood Blood Culture - Preliminary NO GROWTH AFTER 24 HOURS Constitutional Constitutional: no acute distress *Routine HEENT Exam Head: Present normocephalic Eye: Present EOMI and PERRL ENT: Present mucous membranes moist *Routine Neck Exam Neck: Present supple; Absent lymphadenopathy *Routine Respiratory Exam Respiratory: Present wheezes and diminished air movement; Absent CTA bilaterally *Routine Cardiovascular Exam Cardiovascular: Present RRR *Routine Abdominal Exam Abdominal: Present soft and normoactive bowel sounds; Absent tenderness *Routine Extremities Exam Extremities: Absent cyanosis, clubbing or edema *Routine Skin Exam Skin: Present warm; Absent rash *Routine Neurological Exam Neurological: Present alert and oriented X3 Assessment and Plan *Assessment and plan (1) COPD exacerbation: Status: Acute Category: Medical Code(s): J44.1 - Chronic obstructive pulmonary disease with (acute) exacerbation (2) Hypoxic respiratory failure: Status: Acute Qualifiers: Chronicity: acute Qualified Code(s): J96.01 - Acute respiratory failure with hypoxia Category: Medical Code(s): J96.91 - Respiratory failure, unspecified with hypoxia (3) Tobacco abuse: Status: Acute Category: Medical Code(s): Z72.0 - Tobacco use Plan 74-year-old female with past medical history of COPD, chronic tobacco use, does not use home oxygen and is on no chronic home medications who presented with a 1-week history of cough, fevers, generalized weakness and shortness of air #Acute hypoxic respiratory failure - COPD exacerbation Reports has previously been diagnosed with COPD Continues to smoke, only uses rescue inhalers as needed Presents with a 1-week progressive history of cough, reports initially had fevers, now resolved, continued worsening shortness of air Cxray with no acute consolidations CTA chest shows no PE. Continue Rocephin, Doxycycline Sputum ordered ? Patient is doing somewhat better than yesterday, but continues to have significant wheezing and was requiring 12 L Ventimask this morning. ? DuoNebs every 4 hours, Pulmicort twice daily. ? IV Solu-Medrol 40 mg daily. ? Consider starting Trelegy 100 for anticipated discharge tomorrow. #Left thyroid gland cyst ? Will need further evaluation outpatient. - Chronic Tobacco Use Counseled on the need for cessation Denies needing NRT Full code Lovenox 40 mg
[2024-11-15] VITALS (9 sets, daily range): BP systolic 111–112; BP diastolic 49–61; PULSE 90–130; RESP 17–20; TEMP 36.8–37.1; O2SAT 87–95; BMI 26.2
[2024-11-15] MEDS: IPRATROPIUM/ALBUTEROL 3 ML NEB IH ×3 (01:56→10:14)
[2024-11-15] MEDS: BUDESONIDE 0.5MG/2ML NEB 0.5 MG IH (05:57)
[2024-11-15 07:57] LABS: Albumin Level 3.8 g/dl (3.5-5.0); Chloride 97 mmol/L (98-107); Potassium 3.5 mmoL/L (3.5-5.1); Sodium 132 mmol/L (136-145)
[2024-11-15 08:00] LABS: Alanine Aminotransferase 31 U/L (12-78); Albumin/Globulin Ratio 1.3 (1.1-1.8); Alkaline Phosphatase 126 U/L (38-126); Anion Gap 8.5 mEq/L (5-15); Aspartate Amino Transferase 43 U/L (14-36); Bilirubin,Total 0.4 mg/dl (0.2-1.3); Blood Urea Nitrogen 17 mg/dl (7-17); Calcium 9.5 mg/dl (8.4-10.2); Carbon Dioxide 30 mmol/L (22.0-30.0); Creatinine Clearance Estimated 60 mL/min (50-200); Estimated Glomerular Filt Rate 70 ml/min (>60); GFR (African American) 85 ML/MIN (>60); Globulin 2.9 g/dL (1.3-3.2); Glucose 112 mg/dl (74-100); Magnesium 2.1 mg/dl (1.6-2.3); Total Protein,Serum 6.7 g/dl (6.3-8.2)
[2024-11-15] MEDS: CEFTRIAXONE SODIUM 1 GM in 0.9 % SODIUM CHLORIDE 50 ML IV (08:16)
[2024-11-15] MEDS: DOXYCYCLINE HYCL 100 MG TABLET PO (08:16)
[2024-11-15] MEDS: METHYLPREDNISOLONE SOD SUCC 40MG VIAL 40 MG IV (08:17)
--- NOTE | 2024-11-15 08:50 | PC.NURSE ---
PT IS 93% ON ROOM AIR WHILE AT REST. PT DESATED TO 88% WHILE AMBULATING TO THE BATHROOM ON 2L.
[2024-11-15 09:45] LABS: Hematocrit 41.7 % (37.0-47.0); Hemoglobin 13.9 g/dL (12.2-16.2); Mean Corpuscular HGB Conc 33.3 g/dL (31.8-35.4); Mean Corpuscular Hemoglobin 30.1 pg (27.0-31.2); Mean Corpuscular Volume 90.3 fl (81-99); Mean Platelet Volume 9.8 fl (7.4-10.4); Platelet Count 239 K/mm3 (142-424); Red Blood Count 4.62 M/mm3 (4.20-5.40); White Blood Count 6.9 K/mm3 (4.8-10.8)
[2024-11-15 09:46] LABS: Basophils % 0.4 % (0.1-2.0); Eosinophils # 0.2 K/mm3 (0.0-0.4); Eosinophils % 2.2 % (0.1-12.0); Lymphocytes # 1.3 K/mm3 (0.7-4.5); Lymphocytes % 18.1 % (10-50); Monocytes # 0.7 K/mm3 (0.1-1.0); Monocytes % 10.3 % (1.7-9.3); Neutrophils # 4.8 K/mm3 (1.8-7.8); Neutrophils % 68.7 % (37.0-80.0)
--- NOTE | 2024-11-15 10:12 | PC.NURSE ---
RA O2 sat 90% at rest and 86% ambulating
--- NOTE | 2024-11-15 12:03 | CARE MANAGER ---
Addendum entered by Sveta Hernandez RN 11/15/24 13:16: Patient signed Patient Choice for [employer]. Order/Clinical faxed and planned for delivery to hospital today. [place] bus steward given [employer]'s number in case of issues with delivery. Original Note: Patient's RA saturation was reported as 86% at rest this morning, continues to require supplemental O2 @ 2L NC.
--- NOTE | 2024-11-15 12:49 | P.DS_ITS ---
General Admission date:: 11/13/24 Discharge date: 11/15/24 HPI HPI HPI: Ms. Martinez is a 74-year-old female with a past medical history of COPD, only on Albuterol prn, chronic tobacco use, does not wear home oxygen. She presents to [facility] due to a 1-week history of cough, shortness of air, generalized fatigue and fevers. She reports similar sick contacts in the home. She reports that she has been taking Mucinex, Psueduofed, Robitussin with no improvement of her symptoms. In the ER, the patient underwent a Cxray that showed no acute findings, CBC was unremarkable. CMP showed a sodium of 132 and was otherwise unremarkalbe. Upon arrival in the ER she was noted to be 88 percent on room air and improved to mid to upper 90's with 2 L and duonebs. CTA of the chest is currently pending. The patient is admitted with initial impression: Acute Exacerbation of COPD Hospital Course Hospital Course Hospital Course: 74-year-old female with past medical history of COPD, chronic tobacco use, does not use home oxygen and is on no chronic home medications who presented with a 1-week history of cough, fevers, generalized weakness and shortness of air. Still necessitating oxygen on day of discharge. Requiring 2 L. Showing significant improvement however. Will continue treatment for COPD exacerbation. Stable to discharge home to complete course. Problems addressed as follows: #Acute hypoxic respiratory failure - COPD exacerbation Chronic tobacco use disorder Reports has previously been diagnosed with COPD. Continues to smoke. Presented with a week of progressive history of cough, subjective fevers, shortness of breath. Chest x-ray with no acute consolidation. CTA with no PE. Started on ceftriaxone and doxycycline. Found to be positive for RSV on respiratory panel. Counseled on typical time course for resolution of symptoms. Treated with DuoNebs every 4 hours and Pulmicort twice daily. Pulmonology assisted with care. Transitioned to prednisone 40 mg daily and cefdinir twice daily to complete 5 days of therapy for COPD exacerbation. On day of discharge, room air saturation was 86% at rest. Continue 2 L oxygen as needed continuously at discharge. Started on Anoro inhaler. Nicotine patch to assist with tobacco cessation. Follow-up with pulmonology as an outpatient. #Left thyroid gland cyst ? Will need further evaluation outpatient. Asymptomatic Exam Data for Last 24 hours Vital signs and Labs for Last 24 Hours: Temp Pulse Resp BP Pulse Ox O2 Del Method O2 Flow Rate 98.2 F 130 H 17 111/61 93 L Nasal Cannula 2 11/15/24 07:44 11/15/24 08:00 11/15/24 07:44 11/15/24 07:44 11/15/24 08:51 11/15/24 11:00 11/15/24 11:00 FiO2 90 11/14/24 08:00 Laboratory Results - last 24 hr 11/15/24 07:00: WBC 6.9 D, RBC 4.62, Hgb 13.9, Hct 41.7, MCV 90.3, MCH 30.1, MCHC 33.3, RDW 13.0, Plt Count 239, MPV 9.8, Neut % (Auto) 68.7, Lymph % (Auto) 18.1, [place] % (Auto) 10.3 H, Eos % (Auto) 2.2, Baso % (Auto) 0.4, Neut # (Auto) 4.8, Lymph # (Auto) 1.3, [place] # (Auto) 0.7, Eos # (Auto) 0.2, Baso # (Auto) 0.0, Sodium 132 L, Potassium 3.5, Chloride 97 L, Carbon Dioxide 30, Anion Gap 8.5, BUN 17 D, Creatinine 0.80, Estimated Creat Clear 60, Estimated GFR 70, Est GFR ( Amer) 85, Glucose 112 H, Calcium 9.5, Magnesium 2.1, Total Bilirubin 0.4, AST 43 H, ALT 31, Alkaline Phosphatase 126, Total Protein 6.7, Albumin 3.8, Globulin 2.9, Albumin/Globulin Ratio 1.3 I & O for Last 24 hours: Intake & Output 11/12/24 11/13/24 11/14/24 11/15/24 23:59 23:59 23:59 23:59 Intake Total 1320 / 1320 240 / 240 Output Total 0 / 0 0 / 0 Balance 0 / 180 1320 / 1320 240 / 240 Weight 73.527 kg 75.841 kg 75.92 kg Microbiology Reports for the Last 24 Hours: Microbiology 11/13/24 15:28 Blood Blood Culture - Preliminary NO GROWTH AFTER 24 HOURS 11/13/24 15:28 Blood Blood Culture - Preliminary NO GROWTH AFTER 24 HOURS Constitutional Constitutional: no acute distress, average body habitus, chronically ill appearing and cooperative *Routine HEENT Exam Head: Present normocephalic Eye: Present EOMI and PERRL ENT: Present mucous membranes moist *Routine Neck Exam Neck: Present supple; Absent lymphadenopathy *Routine Respiratory Exam Respiratory: Present prolonged expiratory phase and wheezes; Absent accessory muscle use, rhonchi or crackles *Routine Cardiovascular Exam Cardiovascular: Present RRR *Routine Abdominal Exam Abdominal: Present soft and normoactive bowel sounds; Absent tenderness *Routine Rectal Exam Patient deferred: visual exam *Routine Exam Patient deferred: external exam *Routine Extremities Exam Extremities: Absent cyanosis, clubbing or edema *Routine Skin Exam Skin: Present warm; Absent rash *Routine Neurological Exam Neurological: Present alert, oriented X3 and moving all extremities; Absent altered mental status Results Data Completed and Pending Labs on day of discharge: Labs from last 24 hours 11/15/24 07:00 WBC 6.9 D RBC 4.62 Hgb 13.9 Hct 41.7 MCV 90.3 MCH 30.1 MCHC 33.3 RDW 13.0 Plt Count 239 MPV 9.8 Neut % (Auto) 68.7 Lymph % (Auto) 18.1 [place] % (Auto) 10.3 H Eos % (Auto) 2.2 Baso % (Auto) 0.4 Neut # (Auto) 4.8 Lymph # (Auto) 1.3 [place] # (Auto) 0.7 Eos # (Auto) 0.2 Baso # (Auto) 0.0 Sodium 132 L Potassium 3.5 Chloride 97 L Carbon Dioxide 30 Anion Gap 8.5 BUN 17 D Creatinine 0.80 Estimated Creat Clear 60 Estimated GFR 70 Est GFR ( Amer) 85 Glucose 112 H Calcium 9.5 Magnesium 2.1 Total Bilirubin 0.4 AST 43 H ALT 31 Alkaline Phosphatase 126 Total Protein 6.7 Albumin 3.8 Globulin 2.9 Albumin/Globulin Ratio 1.3 Preliminary micro results at discharge 11/13/24 15:28 Blood Culture - Preliminary Blood NO GROWTH AFTER 24 HOURS 11/13/24 15:28 Blood Culture - Preliminary Blood NO GROWTH AFTER 24 HOURS DS: Diagnosis Discharge Diagnosis (1) COPD exacerbation: Status: Acute Code(s): J44.1 - Chronic obstructive pulmonary disease with (acute) exacerbation (2) Hypoxic respiratory failure: Status: Acute Code(s): J96.91 - Respiratory failure, unspecified with hypoxia Qualifiers: Chronicity: acute Qualified Code(s): J96.01 - Acute respiratory failure with hypoxia (3) Tobacco abuse: Status: Acute Code(s): Z72.0 - Tobacco use Meds Home Medications and Allergies Home Medications ?Medication ?Instructions ?Recorded ?Confirmed ?Type albuterol sulfate 90 mcg/actuation 2 puff inhalation Q6H PRN 11/15/24 Rx aerosol inhaler (Ventolin HFA) shortness of breath or wheezing #8.5 grams cefdinir 300 mg capsule 300 mg PO BID 3 days #6 caps 11/15/24 Rx nicotine 21 mg/24 hr daily 1 patch transdermal DAILY #28 ea 11/15/24 Rx transdermal patch prednisone 20 mg tablet 40 mg (2 x 20 mg) PO DAILY 3 days 11/15/24 Rx #6 tabs umeclidinium 62.5 mcg-vilanterol 1 inh inhalation DAILY #60 ea 11/15/24 Rx 25 mcg/actuation powdr for inhalation (Anoro Ellipta) New Prescriptions to Start Prescriptions: albuterol sulfate [Ventolin HFA] Wesly,Sudarshan cefdinir Wesly,Sudarshan nicotine Wesly,Sudarshan prednisone Wesly,Sudarshan umeclidinium-vilanterol [Anoro Ellipta] Sudarshan Jarrell Allergies Allergy/AdvReac Type Severity Reaction Status Date / Time No Known Allergies Allergy Verified 11/13/24 15:19 Discharge Plan Disposition Patient Disposition: Home, Self-Care Condition: Fair Discharge Order Discharge Orders: Discharge Order (Routine); Ordered 11/15/24 Ordered By: Sudarshan Jarrell Follow up Plan Follow up with: Ishan Logan MD [Physician] - Enter time for follow up (Please call office for appointment.) Prescriptions/Medication Reconciliation: New prednisone 20 mg tablet 40 mg PO DAILY 3 Days Qty: 6 0RF albuterol sulfate [Ventolin HFA] 90 mcg/actuation HFA aerosol inhaler 2 puff inhalation Q6H PRN (Reason: shortness of breath or wheezing) Qty: 8.5 0RF cefdinir 300 mg capsule 300 mg PO BID 3 Days Qty: 6 0RF nicotine 21 mg/24 hr patch 24 hour 1 patch transdermal DAILY Qty: 28 0RF Anoro Ellipta 62.5-25 mcg/actuation Blister With Device 1 inh inhalation DAILY Qty: 60 0RF Rx Instructions: send inhaler home with pt Other Ambulatory Orders: Home Medical Equipment (Routine) Location: None Selected Ordered By: Sudarshan Jarrell Problem Reconciliation Problems Reviewed?: Yes Patient Discharge Instructions ACTIVITY: Continue current activity DIET: continue same diet Print Language: Chinese Providers Primary Care Provider: Provider,Referral Admit Provider: Micheal Higgins Attending Provider: Micheal Higgins
[2024-11-15] MEDS: UMECLIDINIUM/VILANTEROL 62.5/25MCG INHALER 1 PUFF IH (13:15)
--- NOTE | 2024-11-17 10:05 | SW/DCPLANNER ---
Spoke with patient on the phone. Patient stated that she is doing pretty well. Patient stated that she is calling to schedule her follow up appointment with Dr. Logan today. Patient stated that she was able get her medicine before she left the hospital that clinic pharmacy brought it to her bedside before she was disharged. Patient stated that she has no concerns or questions at this time. Chikis Lam
== END 2024-11-15 13:48 | disposition home or self-care (01) | DRG 190 ==
LOC: ER 15:52 → 2ND 19:46
PROVIDERS: Nurse Practitioner Family; Admitting Provider Student in an Organized Health Care Education/Training Program; Emergency Provider Emergency Medicine; Visit Provider Student in an Organized Health Care Education/Training Program
DX: J44.1 Chronic obstructive pulmonary disease with (acute) exacerbation (principal); J96.01 Acute respiratory failure with hypoxia; F17.210 Nicotine dependence, cigarettes, uncomplicated; I10 Essential (primary) hypertension; Z79.899 Other long term (current) drug therapy; E04.1 Nontoxic single thyroid nodule
CPT/HCPCS: 36415; 71045; 71275; 80053; 82803; 83605; 83735; 83880; 84484; 85025; 85610; 85730; 87040; 87633; 93005; 94640; 94760; 94761; 99291; J0696; J2919; J3475; J7620; Q9967

== ENCOUNTER 2024-11-30 14:02 | Outpatient (CLI) | payer MEDICARE, SELFPAY ==
--- NOTE | 2024-11-30 14:07 | US_ITS ---
FINAL REPORT TECHNIQUE: Real-time grayscale and color ultrasound of the thyroid was performed. CLINICAL HISTORY: THYROID CYST COMPARISON: None FINDINGS: The thyroid gland measures 57 x 24 x 28 mm on the right and 52 x 20 x 19 mm on the left. The isthmus measures 3 mm. The parenchyma is unremarkable . Nodules: There is a multitude of nodules in both lobes of the thyroid. A nodule in the periphery of the right lobe measures 1.3 cm, solid, hypoechoic, and contains macrocalcifications, TR 4. There is a cystic and solid nodule in the anterior right lobe measuring 2.2 cm, TR 3. There is a 1.9 cm cystic and solid right TR 3 nodule. There is a 1.7 cm solid and hypoechoic posterior right lobe TR 4 nodule. There are subcentimeter isthmus and left lobe nodules. IMPRESSION: Right 1.7 cm TR 4 nodule. Biopsy indicated per TI-RADS criteria. Reviewed, Interpreted and Dictated by Douglas Trujillo MD Transcribed by Rhina Sarmiento Authenticated and [facility]
== END 2024-11-30 23:59 | disposition home or self-care (01) ==
LOC: RAD 14:03
PROVIDERS: PCP Physician Assistant; Visit Provider Physician Assistant
DX: E04.1 Nontoxic single thyroid nodule (principal)
CPT/HCPCS: 76536

== ENCOUNTER 2025-01-31 09:51 | Outpatient (CLI) | payer MEDICARE, SELFPAY ==
[2025-01-31] MEDS: ALBUTEROL 0.083% 2.5 MG/3 ML NEB IH (10:24)
== END 2025-01-31 23:59 | disposition home or self-care (01) ==
LOC: RT 09:51
PROVIDERS: PCP Physician Assistant; Visit Provider Internal Medicine Pulmonary Disease
DX: R06.09 Other forms of dyspnea (principal)
CPT/HCPCS: 94060; 94618; 94726; 94729; J7613

== ENCOUNTER 2025-03-06 11:37 | Day surgery (SDC) | payer MEDICARE, SELFPAY ==
--- NOTE | 2025-03-03 09:51 | SUR.PREOP ---
Voicemail left 03/03/25 to pre op.
[2025-03-03 10:46] VITALS: BMI 25.5
[2025-03-06 12:26] VITALS: BP 126/78; PULSE 75; RESP 16; TEMP 36.3; O2SAT 96
[2025-03-06] MEDS: LACTATED RINGERS 1000ML 1,000 ML 50 ML IV (12:37)
--- NOTE | 2025-03-06 13:06 | EXP.ANES.CKL ---
[facility] Disclaimer: The information contained in this section may have been updated after the patient was seen, as this information can be updated by other users. Medical History Dyspnea on exertion Smoking greater than 30 pack years Pulmonary emphysema Colonoscopy planned Cholecystectomy planned Breast cancer Tobacco use COPD (chronic obstructive pulmonary disease) Surgical History History of colonoscopy History of cholecystectomy History of lumpectomy of right breast History of hysterectomy Family History Other Atrial fibrillation Breast cancer Colon cancer Social History (Updated 03/06/25 @ 12:34 by Marlene Stacy RN) Smoking Status: Current every day smoker alcohol intake: never substance use type: denies use current occupational status: retired Travel in the last 8 weeks: None caffeine: Yes [facility] Anesthesia Checklist Patient Identification Patient Identification: Arm Band Structural Data Admitted From: Home Planned Operative Procedure/s: Colonoscopy Verified Documents: Surgical Consent and History and Physical NPO Status Verified Time NPO: 00:00 Additional verifications Anesthesia Reactions: No Airway Assessment Mallampati Score:: Class II C-Spine Mobility Assessed: Yes TMJ Mobility Assessed: Yes Dentition: Good Dentition (Upper partial removed) Neurological Assessment Level of Consciousness: Awake, Alert and Appropriate Anesthesia Plan Anesthesia Risk discussed: Yes Anesthesia Plan: Verified ASA Class: III Anesthesia Type: MAC
--- NOTE | 2025-03-06 13:25 | EXP.HP ---
History of Present Illness *Admission Date: 03/06/25 *Reason for visit:: High risk family history and screening *History of present illness: Mrs. Martinez is a 74-year-old female who is here for high risk screening colonoscopy due to strong family history (twin brother with colon cancer at age 59). The patient's last colonoscopy was 10 to 15 years ago. The examination is deemed medically necessary for screening colonoscopy. The patient has been seen, interviewed and examined prior to the procedure by both myself and the anesthesia provider. [facility] Disclaimer: The information contained in this section may have been updated after the patient was seen, as this information can be updated by other users. Medical History (Updated 03/06/25 @ 13:35 by Unruly Guzman II, MD) Dyspnea on exertion Smoking greater than 30 pack years Pulmonary emphysema Colonoscopy planned Cholecystectomy planned Breast cancer Tobacco use COPD (chronic obstructive pulmonary disease) Surgical History History of colonoscopy History of cholecystectomy History of lumpectomy of right breast History of hysterectomy Family History Other Atrial fibrillation Breast cancer Colon cancer Social History (Updated 03/06/25 @ 13:07 by Donavan Veliz CRNA) Smoking Status: Current every day smoker alcohol intake: never substance use type: denies use current occupational status: retired Travel in the last 8 weeks: None caffeine: Yes Have you lived/traveled outside [place] in past 30 days?: No Contact w/someone who lives/traveled outside US past 30 days?: No Exposure to someone with infectious disease in past 14 days?: No Do you have a fever (greater than 100.4 F or 38 C)?: No Have you tested positive for COVID-19: No Exposed to someone with COVID-19 in past 14 days?: No Do you have a sore throat?: No Do you have a cough?: No Do you have any weakness?: No Are you experiencing any nausea/vomitting?: No Do you have any diarrhea?: No Are you experiencing any unusual bleeding?: No Do you have any muscle aches/pain?: No Do you have any abdominal pain?: No Are you experiencing loss of taste or smell?: No Other Medical History Have you received the Flu Vaccine for this season: No Have you received the Pneumonia Vaccine: Yes Review of Systems Review of Systems Review of systems (narrative): Negative *Cardiovascular Comments: Negative *Gastrointestinal Comments: Negative *Genitourinary Comments: Negative *Musculoskeletal Comments: Negative *Neurologic Comments: Negative Meds Home Medications and Allergies Home Medications ?Medication ?Instructions ?Recorded ?Confirmed ?Type albuterol sulfate 90 mcg/actuation 2 puff inhalation Q6H PRN 11/15/24 03/06/25 Rx aerosol inhaler (Ventolin HFA) shortness of breath or wheezing #8.5 grams sodium,potassium,mag sulfates 17.5 See Rx Instructions PO .COMPLEX 02/20/25 Rx gram-3.13 gram-1.6 gram oral soln #354 mL (Suprep Bowel Prep Kit) New Prescriptions to Start Prescriptions: Allergies Allergy/AdvReac Type Severity Reaction Status Date / Time No Known Allergies Allergy Verified 03/06/25 12:25 Exam Data for Last 24 hours Vital signs and Labs for Last 24 Hours: Temp Pulse Resp BP Pulse Ox O2 Del Method 97.4 F L 75 16 126/78 96 Room Air 03/06/25 12:26 03/06/25 12:26 03/06/25 12:26 03/06/25 12:26 03/06/25 12:26 03/06/25 12:26 I & O for Last 24 hours: Intake & Output 03/03/25 03/04/25 03/05/25 03/06/25 23:59 23:59 23:59 23:59 Weight 168 lb *Routine HEENT Exam Head: Present normocephalic Eye: Present EOMI and PERRL ENT: Present mucous membranes moist *Routine Neck Exam Neck: Present supple *Routine Respiratory Exam Respiratory: Present CTA bilaterally *Routine Cardiovascular Exam Cardiovascular: Present RRR *Routine Abdominal Exam Abdominal: Present soft and normoactive bowel sounds; Absent tenderness *Routine Rectal Exam Rectal:: deferred *Routine Genitalia Exam Genitalia:: deferred *Routine Extremities Exam Extremities: Absent cyanosis, clubbing or edema *Routine Skin Exam Skin: Present warm; Absent rash *Routine Neurological Exam Neurological: Present alert and oriented X3 Assessment and Plan *Assessment and plan (1) Screening for colon cancer: Status: Acute Category: Medical Code(s): Z12.11 - Encounter for screening for malignant neoplasm of colon (2) Family history of colon cancer: Status: Acute Category: Medical Code(s): Z80.0 - Family history of malignant neoplasm of digestive organs Plan A/P: 1. High risk screening colonoscopy secondary to family history (fraternal twin brother with colon cancer at age 59) is the preprocedural diagnosis. The patient will be anesthetized/sedated using MAC sedation. The patient has been seen and examined. Cardiac and lung assessment prior to the examination is stable. Proceed with planned screening colonoscopy.
[2025-03-06 13:27] VITALS: O2SAT 100
--- NOTE | 2025-03-06 13:35 | [facility].PROCNOTE ---
[facility] Procedure Note Date: 03/06/25 Time: 13:52 Procedure Note:: Colonoscopy Procedure Report: Colonoscopy with cold snare polypectomy Endoscopist: Unruly Guzman II, MD Referring physician: Ni Crawford PA-C, [address] [facility]. [address] [id number] Date of Procedure: March 06, 2025 Equipment: Olympus 190 variable stiffness pediatric colonoscope Sedation: MAC sedation Indication: Mrs. Martinez Procedure: Prior to the procedure, a history and physical exam was performed, and patient's medications and allergies were reviewed. The risks, benefits and alternatives of the sedation and procedure were discussed with the patient. All questions were answered and informed consent was obtained. The patient was brought to the procedure room. Patient identification and proposed procedure were verified by the physician and the nurse. The patient was placed in a left lateral decubitus position and the scope was passed under direct vision. Throughout the procedure, the patient's blood pressure, pulse, and oxygen saturations were monitored continuously. The colonoscopy was accomplished without difficulty. The patient tolerated the procedure well. Findings: On digital rectal examination there was normal rectal tone. There were no external hemorrhoids. The colonoscope was introduced through the anal canal to the rectum and advanced to the cecum. The ileocecal valve and appendiceal orifice were identified. The scope was advanced a short distance into the ileum which appeared grossly normal. The scope was then withdrawn into the colon. The cecum, ascending and transverse colon and mucosa were grossly normal. There were scattered diverticuli throughout the descending and sigmoid colon (LEFT colon). There were 4 polyps (descending x 2 (3 and 6 mm), sigmoid x 1 (7 mm) and rectum x 1 (4 mm)). These were all removed via cold snare polypectomy. The rectum itself was normal. Upon retroflexion within the rectum there were grade 2 internal hemorrhoids. The preparation was fair to less than adequate throughout much of the colon with [place] Preparation Score of 5-6 out of 9. The cecal time was 12 minutes. Impression: 1. Colonic polyps x 4 2. Left-sided diverticulosis 3. Grade 2 internal hemorrhoids 4. Fair/less than adequate bowel preparation ([place] preparation score 5?6 out of 9) Plan: I will discuss the findings with the patient and family and follow-up the polyp histology. I would encourage surveillance colonoscopy at a 5-year interval based upon adenomatous polyp pathology and family history. I would encourage psyllium bulking fiber supplementation on a maintenance basis.
[2025-03-06 13:56] VITALS: BP 121/73; PULSE 77; RESP 16; TEMP 36.1; O2SAT 96
[2025-03-06 14:06] VITALS: BP 104/63; BP 106/73; PULSE 73; PULSE 75; RESP 18; O2SAT 96; O2SAT 97
[2025-03-06 14:26] VITALS: BP 110/73; PULSE 76; RESP 18; O2SAT 98
== END 2025-03-06 14:39 | disposition home or self-care (01) ==
PROVIDERS: PCP Physician Assistant; Visit Provider Internal Medicine Gastroenterology
PROC: 0DJD8ZZ Inspection of Lower Intestinal Tract, Via Natural or Artificial Opening Endoscopic (ICD-10-PCS; CPT 45378; principal; 2025-03-06 13:00)
DX: K63.5 Polyp of colon (principal); K57.30 Diverticulosis of large intestine without perforation or abscess without bleeding; K64.1 Second degree hemorrhoids; Z12.11 Encounter for screening for malignant neoplasm of colon; Z80.0 Family history of malignant neoplasm of digestive organs
CPT/HCPCS: 45385; J7120